=== PATIENT | female | born 2000 | race African-American/Black ===

== ENCOUNTER 2024-04-18 03:03 | Inpatient (IN) | payer BC ==
[2024-04-18 03:32] VITALS: BMI 38.7
[2024-04-18] MEDS ORDERED: Acetaminophen 500 MG TAB PO PRN (03:32)
[2024-04-18] MEDS ORDERED: Promethazine HCl 25 MG/ML VIAL IM PRN ×2 (03:32→04:53)
[2024-04-18] MEDS ORDERED: Carboprost 250 MCG/ML AMP IM PRN (03:32)
[2024-04-18] MEDS ORDERED: hydrALAZINE 20 MG/ML VIAL SLOW IVP PRN ×3 (03:32→13:08)
[2024-04-18] MEDS ORDERED: Tranexamic Acid 1,000 MG/10 ML VIAL IVP PRN (03:32)
[2024-04-18] MEDS ORDERED: Ondansetron PF 4 MG/2 ML Vial IVP PRN ×2 (03:32→04:53)
[2024-04-18] MEDS ORDERED: fentaNYL 50 mcg/mL 1 mL Vial SLOW IVP PRN (03:32)
[2024-04-18] MEDS ORDERED: Methylergonovine 0.2 MG/ML VIAL IM PRN (03:32)
[2024-04-18] MEDS ORDERED: Oxytocin 30 units/NS 500 ML 500 ML IV SCH ×2 (03:45)
[2024-04-18] MEDS: Lactated Ringer's 1,000 ML IV SCH (04:00)
[2024-04-18] MEDS: Penicillin G Potassium 5 MILL.UNITS in Sodium Chloride 0.9% 100 ML IVPB SCH (04:00)
[2024-04-18 04:23] LABS: Hematocrit 32.4 % (34.9-44.5); Hemoglobin 10.1 g/dL (12.0-15.5); Mean Corpuscular HGB CONC 31.2 g/dL (32.0-36.0); Mean Corpuscular Hemoglobin 24.6 pg (27.0-33.0); Mean Platelet Volume 12.1 fL (7.4-10.4); Platelet Count 324 10x3/uL (150-450); RBC Distribution Width 16.9 % (11.5-14.5); White Blood Cell (WBC) Count 16.9 10x3/uL (3.5-10.5)
[2024-04-18 04:34] LABS: HBsAg Index 0.41 S/CO (0-0.99); Hep B Surf Ag - L&D Non-Reactive S/CO (NonReactive)
[2024-04-18 04:35] LABS: Syphilis Antibody Nonreactive (Nonreactive); Syphilis Antibody Index 0.13 S/CO (<1.00 Non-Reactive)
[2024-04-18] MEDS: fentaNYL/Ropivacaine Epidural 100 ML ONE (04:48)
[2024-04-18] MEDS ORDERED: Moisturizing Cream (Eucerin) 113 GM JAR TOP PRN (04:53)
[2024-04-18] MEDS ORDERED: Acetaminophen 325 MG TAB PO PRN (04:53)
[2024-04-18] MEDS ORDERED: Lactated Ringer's 500 ML IV PRN (04:53)
[2024-04-18] MEDS ORDERED: Naloxone HCl 0.4 mg/ml Vial IVP PRN ×2 (04:53)
[2024-04-18] MEDS ORDERED: ePHEDrine Sulfate 50 MG/10 ML VIAL SLOW IVP PRN (04:53)
[2024-04-18] MEDS ORDERED: diphenhydrAMINE 50 MG/ML VIAL IVP PRN (04:53)
[2024-04-18] MEDS ORDERED: fentaNYL 2 mcg/Ropivacaine 0.2% Epidural 100 ML CADD EPIDURAL SCH ×2 (05:00→10:00)
[2024-04-18] MEDS ORDERED: Communication Order-Pharmacy FS SCH (05:00)
[2024-04-18] MEDS ORDERED: Penicillin G 2.5 MILL.units 2.5 MILL.UNITS in Premix 1 BAG IVPB SCH (08:00)
[2024-04-18] MEDS ORDERED: Labetalol HCl 100 MG/20 ML VIAL SLOW IVP PRN ×3 (08:02)
[2024-04-18] MEDS ORDERED: Lorazepam 2 MG/ML VIAL SLOW IVP PRN (08:02)
[2024-04-18] MEDS ORDERED: Calcium Gluc 4.6 MEQ/10 ML (100 MG/ML) SLOW IVP PRN (08:02)
[2024-04-18] MEDS ORDERED: Magnesium Sulfate 20 gm/500 ml 20 GM/500 ML BAG IVPB SCH (08:15)
[2024-04-18] MEDS: Oxytocin 30 units/NS 500 ML 500 ML IV SCH (09:40)
[2024-04-18] MEDS: Misoprostol 200 MCG TAB PR PRN (09:41)
[2024-04-18] MEDS: Lidocaine 1% (PF) 30 ML VIAL SC PRN (09:50)
[2024-04-18] MEDS: Morphine 4 MG/ML VIAL SLOW IVP SCH (09:52)
[2024-04-18 10:24] LABS: #Basophils 0.03 10x3/uL (0.0-0.2); #Monocytes 0.79 10x3/uL (0.0-1.1); #Neutrophils 15.98 10x3/uL (1.5-8.4); %Basophils 0.1 % (0.0-2.0); %Lymphocytes 14.9 % (18.0-47.0); %Monocytes 3.9 % (0.0-10.0); %Neutrophils 79.6 % (40.0-75.0); Hematocrit 31.8 % (34.9-44.5); Hemoglobin 10.1 g/dL (12.0-15.5); Mean Corpuscular HGB CONC 31.8 g/dL (32.0-36.0); Mean Corpuscular Hemoglobin 25.2 pg (27.0-33.0); Mean Corpuscular Volume 79.3 fL (81.6-98.3); Platelet Count 339 10x3/uL (150-450); RBC Distribution Width 17.1 % (11.5-14.5); Red Blood Cell (RBC) Count 4.01 10x6/uL (3.90-5.03); White Blood Cell (WBC) Count 20.1 10x3/uL (3.5-10.5)
[2024-04-18 10:26] LABS: ALT (SGPT) 12 U/L (8-55); AST (SGOT) 24 U/L (5-34); Alkaline Phosphatase 218 U/L (40-110); Anion Gap 23 mmol/L (10-20); BUN (Urea Nitrogen) 7 mg/dL (7.0-18.7); Bilirubin, Total 0.3 mg/dL (0.2-1.2); Calc. Creatinine Clearance 189 mL/min (70-130); Calcium 9.5 mg/dL (7.8-10.44); Carbon Dioxide 10 mmol/L (22-29); Chloride 110 mmol/L (98-107); Estimated GFR 114; Globulin 4.3 g/dL (2.4-3.5); Glucose 88 mg/dL (70-105); Potassium 4.5 mmol/L (3.5-5.1); Protein, Total 7.3 g/dL (6.0-8.3); Sodium 138 mmol/L (136-145)
[2024-04-18] MEDS ORDERED: Milk Of Magnesia 30 ML UDCUP PO PRN (13:08)
[2024-04-18] MEDS ORDERED: Preparation H Ointment 28 GM TUBE PR PRN (13:08)
[2024-04-18] MEDS ORDERED: diphenhydrAMINE 25 MG CAP PO PRN (13:08)
[2024-04-18] MEDS ORDERED: Lanolin Ointment 7 GM TUBE TOP PRN (13:08)
[2024-04-18] MEDS ORDERED: Bisacodyl 10 MG SUPP PR PRN (13:08)
[2024-04-18] MEDS: Acetaminophen 500 MG TAB PO SCH (13:59)
[2024-04-18] MEDS: Boostrix 0.5 ML (Tdap) VIAL (>/=7 yrs of age) IM ONE (13:59)
[2024-04-18] MEDS: Polyethylene Glycol 3350 17 GM Packet PO SCH (13:59)
[2024-04-18] MEDS: Ibuprofen 800 MG TAB PO SCH (13:59)
[2024-04-18] MEDS ORDERED: Bupivacaine 0.25% HCL 30 ML VIAL ONE (16:01)
[2024-04-18] MEDS: Ferrous Sulfate 325 MG TAB PO SCH (16:51)
[2024-04-18 17:21] LABS: Creatinine, Urine 54.71 mg/dL (47-110)
[2024-04-18] MEDS: Docusate 100 MG CAP PO SCH (22:16)
[2024-04-19] MEDS: Prenatal Vitamin 1 TAB PO SCH (08:25)
[2024-04-19 09:12] LABS: Hematocrit 24.1 % (34.9-44.5); Hemoglobin 7.7 g/dL (12.0-15.5); Platelet Count 240 10x3/uL (150-450)
[2024-04-19 23:23] VITALS: BP 118/80; TEMP 98.7
[2024-04-20 04:01] LABS: Hematocrit 25.1 % (34.9-44.5); Hemoglobin 7.8 g/dL (12.0-15.5); Platelet Count 261 10x3/uL (150-450)
== END 2024-04-20 14:00 | disposition home or self-care (01) | DRG 768 ==
LOC: CSHLD/OP 03:03 → CSHLD 03:34 → CSHPED 13:05
PROVIDERS: ADMIT Obstetrics & Gynecology; ATTEND Obstetrics & Gynecology
PROC: 10E0XZZ Delivery of Products of Conception, External Approach (ICD-10-PCS; principal; 2024-04-18)
PROC: 0DQR0ZZ Repair Anal Sphincter, Open Approach (ICD-10-PCS; 2024-04-18)
PROC: 3E033XZ Introduction of Vasopressor into Peripheral Vein, Percutaneous Approach (ICD-10-PCS; 2024-04-18)
DX: O14.14 Severe pre-eclampsia complicating childbirth (principal); Z37.0 Single live birth; D62 Acute posthemorrhagic anemia; O99.824 Streptococcus B carrier state complicating childbirth; Z3A.39 39 weeks gestation of pregnancy; O76 Abnormality in fetal heart rate and rhythm complicating labor and delivery; O99.02 Anemia complicating childbirth; O99.214 Obesity complicating childbirth
CPT/HCPCS: 36415; 80053; 82570; 84156; 85014; 85018; 85027; 85049; 86780; 86850; 86900; 86901; 87340; J0665; J2001; J2270; J2540; J2590; J3490; J7120